=== PATIENT | female | born 1985 ===

== ENCOUNTER 2017-08-21 14:41 | Outpatient (CLI) | payer OTHER ==
--- NOTE | 2017-08-21 16:39 | Mammography Report ---
BILATERAL DIGITAL DIAGNOSTIC MAMMOGRAM with CAD and BILATERAL BREAST ULTRASOUND: 08/21/17 CLINICAL: 32-year-old with family history of breast cancer and bilateral breast pain. COMPARISON:None. These are baseline studies. FINDINGS: The breasts are heterogeneously dense, which may obscure small masses.No mass, architectural distortion or suspicious calcifications. Ultrasound of the right breast (including all four quadrants and the retroareolar area) demonstrated normal fibroglandular and fatty structures except for a 2 mm cyst at 7 o'clock 7.5 cm from the nipple. Ultrasound of the left breast (including all four quadrants and the retroareolar area) demonstrated normal fibroglandular and fatty structures except for a benign 4 mm cyst at 10 o'clock 8 cm from the nipple. IMPRESSION: Negative mammogram and bilateral tiny benign cysts. BI-RADS CATEGORY: 2 -- Benign RECOMMENDATION: Clinical followup and routine mammographic screening based on ACS guidelines. COMMENT: Patient follow-up letters are generated by our [employer] in application.
== END 2017-08-21 14:42 | disposition home or self-care (01) ==
LOC: SPVWC 14:41
PROVIDERS: ATTEND Family Medicine
DX: N60.01 Solitary cyst of right breast (principal); N60.02 Solitary cyst of left breast; Z80.3 Family history of malignant neoplasm of breast
CPT/HCPCS: 77066